=== PATIENT | female | born 1985 | race Caucasian/White ===

== ENCOUNTER 2017-05-08 14:18 | Emergency (ER) | payer MEDICAID ==
[2017-05-08] MEDS ORDERED: CIPROFLOXACIN HCL 0.3% OPH SOLN 2.5 ML OS ONE (15:29)
--- NOTE | 2017-05-08 15:35 | ER Document Report ---
ED General - General Chief Complaint: Drainage from Eye Stated Complaint: COUGH Time Seen by Provider: 05/08/17 15:23 Mode of Arrival: Ambulatory Information source: Patient Notes: 32-year-old female presents with 1 day duration of complaints of pinkeye. Patient notes that she has allergies but has never had thick drainage from her eye, woke up this morning and her eye was matted shut on the left. Notes swelling around the eye itself and noted that now is moving to the right no contact use - HPI Onset: This morning Onset/Duration: Sudden Quality of pain: No pain Severity: Mild Pain Level: Denies Associated symptoms: None Exacerbated by: Denies Relieved by: Denies Similar symptoms previously: No Recently seen / treated by doctor: No Past Medical History - Social History Smoking Status: Never Smoker Cigarette use (# per day): No Chew tobacco use (# tins/day): No Smoking Education Provided: No Family History: Reviewed & Not Pertinent Review of Systems - Review of Systems Notes: REVIEW OF SYSTEMS: CONSTITUTIONAL : Denies fever, chills, or sweats. Denies recent illness. EENT: Admits to discharge from the eyes CARDIOVASCULAR: Denies chest pain. Denies palpitations or racing or irregular heart beat. Denies ankle edema. RESPIRATORY: Denies cough, cold, or chest congestion. Denies shortness of breath, difficulty breathing, or wheezing. GASTROINTESTINAL: Denies abdominal pain or distention. Denies nausea, vomiting , or diarrhea. Denies blood in vomitus, stools, or per rectum. Denies black, tarry stools. Denies constipation. GENITOURINARY: Denies difficulty urinating, painful urination, burning, frequency, blood in urine, or discharge. FEMALE GENITOURINARY: Denies vaginal bleeding, heavy or abnormal periods, irregular periods. Denies vaginal discharge or odor. MUSCULOSKELETAL: Denies back or neck pain or stiffness. Denies joint pain or swelling. SKIN: Denies rash, lesions or sores. HEMATOLOGIC : Denies easy bruising or bleeding. LYMPHATIC: Denies swollen, enlarged glands. NEUROLOGICAL: Denies confusion or altered mental status. Denies passing out or loss of consciousness. Denies dizziness or lightheadedness. Denies headache. Denies weakness or paralysis or loss of use of either side. Denies problems with gait or speech. Denies sensory loss, numbness, or tingling. Denies seizures. PSYCHIATRIC: Denies anxiety or stress. Denies depression, suicidal ideation, or homicidal ideation. ALL OTHER SYSTEMS REVIEWED AND NEGATIVE. PHYSICAL EXAMINATION: GENERAL: Well-appearing, well-nourished and in no acute distress. HEAD: Atraumatic, normocephalic. EYES: Pupils equal round extraocular movements intact, conjunctiva are mildly erythematous ENT: Nares patent NECK: Normal range of motion LUNGS: No respiratory distress Musculoskeletal: Normal range of motion NEUROLOGICAL: Normal speech, normal gait. PSYCH: Normal mood, normal affect. SKIN: Warm, Dry, normal turgor, no rashes or lesions noted. Physical Exam - Vital signs Vitals: Temp Pulse Resp BP Pulse Ox 98.6 F 73 16 132/76 H 98 05/08/17 14:24 05/08/17 14:24 05/08/17 14:24 05/08/17 14:24 05/08/17 14:24 Course - Re-evaluation Re-evalutation: 05/08/17 15:52 Patient did note a cough on her chief complaint however when I talked to her she denies a cough states this not important, notes her eyes or her concern, given that she has had thick discharge from the eye earlier today I will treat her as bacterial conjunctivitis Otherwise patient looks well is in no distress instructions regarding conjunctivitis have been provided to her After performing a Medical Screening Examination, I estimate there is LOW risk for a RETAINED CORNEAL or LID FOREIGN BODY, DEEP SPACE INFECTION (e.g., ORBITAL CELLULITIS OR ABSCESS), ACUTE GLAUCOMA, PENETRATING GLOBE INJURY, RETINAL DETACHMENT, or MENINGITIS thus I consider the discharge disposition reasonable. I have reevaluated this patient multiple times and no significant life threatening changes are noted. Also, there is no evidence or peritonitis, sepsis , or toxicity. The patient and I have discussed the diagnosis and risks, and we agree with discharging home with outpatient follow-up with the understanding that symptoms and presentations can change. We also discussed returning to the Emergency Department immediately if new or worsening symptoms occur. We have discussed the symptoms which are most concerning (e.g., changing or worsening pain, vision changes, neck stiffness or fever) that necessitate immediate return. - Vital Signs Vital signs: Temp Pulse Resp BP Pulse Ox 98.6 F 73 16 132/76 H 98 05/08/17 14:24 05/08/17 14:24 05/08/17 14:24 05/08/17 14:24 05/08/17 14:24 Discharge - Discharge Clinical Impression: Bacterial conjunctivitis of left eye Condition: Stable Disposition: HOME, SELF-CARE Instructions: Conjunctivitis ([facility]), Conjunctivitis, Allergic Forms: Return to Work
[2017-05-08 16:24] VITALS: BP 120/68
== END 2017-05-08 16:20 | disposition home or self-care (01) ==
LOC: ER 14:18
DX: H10.022 Other mucopurulent conjunctivitis, left eye (principal); R05 Cough; R22.0 Localized swelling, mass and lump, head
CPT/HCPCS: 99282; J3490

== ENCOUNTER 2017-09-26 13:33 | Emergency (ER) | payer SELFPAY ==
[2017-09-26 13:43] VITALS: BP 139/78
[2017-09-26] MEDS ORDERED: HYDROCODONE/ACETAMINOPHEN 5-325 MG TABLET PO ONE (14:20)
[2017-09-26] MEDS ORDERED: DOXYCYCLINE HYCLATE 100 MG TABLET PO ONE (14:20)
--- NOTE | 2017-09-26 14:23 | ER Document Report ---
HPI - HPI Patient complains to provider of: Dental infection Onset: Other - 3 days Onset/Duration: Persistent Quality of pain: Achy Pain Level: 4 Context: She complains of dental pain for the past 3 days. Patient states that she did have purulent bloody drainage in her mouth yesterday. Patient reports temperature of 99 at home. Associated Symptoms: Other - Dental pain. denies: Fever Exacerbated by: Denies Relieved by: Denies Similar symptoms previously: Yes Recently seen / treated by doctor: No - ROS ROS below otherwise negative: Yes Systems Reviewed and Negative: Yes All other systems reviewed and negative - CONSTITUTIONAL Constitutional: REPORTS: Fever - 99.0 - EENT Notes: Dental pain - GASTROINTESTINAL Gastrointestinal: DENIES: Nausea - MUSCULOSKELETAL Musculoskeletal: DENIES: Neck Pain - DERM Skin Color: Normal Skin Problems: None Past Medical History - General Information source: Patient - Social History Smoking Status: Current Every Day Smoker Chew tobacco use (# tins/day): No Smoking Education Provided: Yes Frequency of alcohol use: None Drug Abuse: Marijuana Occupation: Foodservice Family History: Reviewed & Not Pertinent Patient has suicidal ideation: No Patient has homicidal ideation: No - Medical History Medical History: Negative Renal/ Medical History: Denies: Hx Peritoneal Dialysis Past Surgical History: Reports: Hx Section, Hx Cholecystectomy, Hx Hysterectomy, Hx Orthopedic Surgery - back Vertical Provider Document - CONSTITUTIONAL Agree With Documented VS: Yes Exam Limitations: No Limitations General Appearance: WD/WN, No Apparent Distress - INFECTION CONTROL TRAVEL OUTSIDE OF THE [place] IN LAST 30 DAYS: No - HEENT HEENT: Atraumatic, Normocephalic Mouth Diagram: 1 - Dental decay, tenderness, mild gingival induration, no sublingual or submental swelling, no trismus - NECK Neck: Normal Inspection, Supple. negative: Lymphadenopathy-Left, Lymphadenopathy-Right - RESPIRATORY Respiratory: Breath Sounds Normal, No Respiratory Distress - CARDIOVASCULAR Cardiovascular: Regular Rate, Regular Rhythm - BACK Back: Normal Inspection - MUSCULOSKELETAL/EXTREMETIES Musculoskeletal/Extremeties: SAM GARCIA - NEURO Level of Consciousness: Awake, Alert, Appropriate Motor/Sensory: No Motor Deficit - DERM Integumentary: Warm, Dry, No Rash Course - Re-evaluation Re-evalutation: 09/26/17 14:21 Patient initially denied taking any pain medications. Review of controlled substance database demonstrates that patient received a prescription for tramadol yesterday for 5 day supply. Patient encouraged to take her prescribed pain medication and to follow-up with a dentist for further evaluation. - Vital Signs Vital signs: Temp Pulse Resp BP Pulse Ox 99.0 F 87 18 139/78 H 100 09/26/17 13:40 09/26/17 13:40 09/26/17 13:40 09/26/17 13:40 09/26/17 13:40 Discharge - Discharge Clinical Impression: Infected dental caries Condition: Stable Disposition: HOME, SELF-CARE Instructions: Dentist, Dental Infection or Abscess ([facility]), Doxycycline ([facility]) Additional Instructions: Return immediately for any new or worsening symptoms Followup with your primary care provider, call tomorrow to make a followup appointment Take your tramadol that you have at home as prescribed Follow-up with a dental care provider Prescriptions: Doxycycline Hyclate 100 mg PO BID #20 capsule Naproxen [Naprosyn 250 Nmg Tablet] 1 tab PO BID #14 tablet Forms: Smoking Cessation Education, Return to Work Referrals: [facility] [Provider Group] - Follow up as needed
== END 2017-09-26 14:40 | disposition home or self-care (01) ==
LOC: ER 13:33
DX: K04.7 Periapical abscess without sinus (principal); F17.200 Nicotine dependence, unspecified, uncomplicated; Z90.49 Acquired absence of other specified parts of digestive tract; Z90.710 Acquired absence of both cervix and uterus
CPT/HCPCS: 99282

== ENCOUNTER 2018-05-06 13:54 | Emergency (ER) | payer SELFPAY ==
[2018-05-06] MEDS ORDERED: ONDANSETRON HCL INJ/PF 4 MG/2 ML SDV IV ONE (15:12)
[2018-05-06] MEDS ORDERED: NORMAL SALINE 1000 ML 2,000 ML IV ONE (15:12)
--- NOTE | 2018-05-06 15:14 | ER Document Report ---
ED Medical Screen (RME) - General Chief Complaint: Vomiting/Diarrhea Stated Complaint: VOMITING,DIARRHEA Time Seen by Provider: 05/06/18 15:08 Mode of Arrival: Ambulatory Information source: Patient Notes: Patient is an otherwise healthy 33-year-old female who presents to the emergency department with chief complaint of nausea, vomiting and diarrhea that began at approximately 2 AM. Patient reports she drank 4 L of arbor mist wine as she was celebrating purchasing her new home. Patient reports she does not normally drink heavily. She usually drinks a glass or 2 of wine occasionally. She denies any abdominal pain, states she just has abdominal cramping at the time that she vomits. Exam: Abdomen soft, mild tenderness, no guarding, no rebound. I have greeted and performed a rapid initial assessment of this patient. A comprehensive ED assessment and evaluation of the patient, analysis of test results and completion of the medical decision making process will be conducted by additional ED providers. Dictation of this chart was performed using voice recognition software; therefore, there may be some unintended grammatical errors. TRAVEL OUTSIDE OF THE [place] IN LAST 30 DAYS: No - Related Data Allergies/Adverse Reactions: acetaminophen [From Vicodin] Allergy (Verified 05/06/18 13:57) aspirin Allergy (Verified 05/06/18 13:57) ciprofloxacin [From Cipro] Allergy (Verified 05/06/18 13:57) clindamycin Allergy (Verified 05/06/18 13:57) clonazepam Allergy (Verified 05/06/18 13:57) codeine Allergy (Verified 05/06/18 13:57) erythromycin base Allergy (Verified 05/06/18 13:57) hydrocodone [From Vicodin] Allergy (Verified 05/06/18 13:57) latex Allergy (Verified 05/06/18 14:00) morphine Allergy (Verified 05/06/18 13:57) Penicillins Allergy (Verified 05/06/18 13:57) prednisone Allergy (Verified 05/06/18 13:57) Past Medical History - Social History Chew tobacco use (# tins/day): No Frequency of alcohol use: Social Drug Abuse: Marijuana Renal/ Medical History: Denies: Hx Peritoneal Dialysis Past Surgical History: Reports: Hx Section, Hx Cholecystectomy, Hx Hysterectomy, Hx Orthopedic Surgery - back Physical Exam - Vital signs Vitals: Temp Pulse Resp BP Pulse Ox 98.4 F 106 H 16 168/85 H 98 05/06/18 14:08 05/06/18 14:08 05/06/18 14:08 05/06/18 14:08 05/06/18 14:08 Course - Vital Signs Vital signs: Temp Pulse Resp BP Pulse Ox 98.4 F 106 H 16 168/85 H 98 05/06/18 14:08 05/06/18 14:08 05/06/18 14:08 05/06/18 14:08 05/06/18 14:08
[2018-05-06 16:37] LABS: ABSOLUTE BASOPHILS # (AUTO) 0.1 10^3/uL (0.0-0.2); ABSOLUTE LYMPHOCYTES (AUTO) 2.5 10^3/uL (0.5-4.7); ABSOLUTE MONOCYTES (AUTO) 0.8 10^3/uL (0.1-1.4); ABSOLUTE NEUT (AUTO) 13.7 10^3/uL (1.7-8.2); BASOPHILS % (AUTO) 0.3 % (0-2); EOSINOPHILS % (AUTO) 0.1 % (0-6); HEMATOCRIT 47.3 % (36.0-47.0); HEMOGLOBIN 16.3 g/dL (12.0-15.5); LYMPHOCYTES % (AUTO) 14.7 % (13-45); MEAN CORPUSCULAR HGB CONC 34.5 g/dL (32.0-36.0); MEAN CORPUSCULAR VOLUME 90 fl (80-97); MONOCYTES % (AUTO) 4.9 % (3-13); PLATELET COUNT 362 10^3/uL (150-450); RED BLOOD COUNT 5.27 10^6/uL (3.72-5.28); RED CELL DISTRIBUTION WIDTH 13.7 % (11.5-14.0); TOTAL CELLS COUNTED % (AUTO) 100 %; WHITE BLOOD COUNT 17.1 10^3/uL (4.0-10.5)
[2018-05-06 16:57] LABS: ALANINE AMINOTRANSFERASE 32 U/L (9-52); ALBUMIN 5.2 g/dL (3.5-5.0); ALKALINE PHOSPHATASE 71 U/L (38-126); ANION GAP 14 (5-19); ASPARTATE AMINO TRANSFERASE 20 U/L (14-36); BILIRUBIN,DIRECT 0.3 mg/dL (0.0-0.4); BILIRUBIN,TOTAL 0.5 mg/dL (0.2-1.3); BLOOD UREA NITROGEN 11 mg/dL (7-20); CALCIUM 10.1 mg/dL (8.4-10.2); CARBON DIOXIDE 25 mmol/L (22-30); CHLORIDE 103 mmol/L (98-107); GLUCOSE 89 mg/dL (75-110); SODIUM 141.9 mmol/L (137-145); TOTAL PROTEIN 8.6 g/dL (6.3-8.2)
[2018-05-06 16:58] LABS: POTASSIUM 4.1 mmol/L (3.6-5.0)
[2018-05-06 17:26] VITALS: BP 135/71
--- NOTE | 2018-05-06 17:29 | ER Document Report ---
ED GI/ - General Chief Complaint: Vomiting/Diarrhea Stated Complaint: VOMITING,DIARRHEA Time Seen by Provider: 05/06/18 15:08 Mode of Arrival: Ambulatory Notes: Patient is an otherwise healthy 33-year-old female who presents to the emergency department with chief complaint of nausea, vomiting and diarrhea that began at approximately 2 AM. Patient reports she drank 4 L of arbor mist wine as she was celebrating purchasing her new home. Patient reports she does not normally drink heavily. She usually drinks a glass or 2 of wine occasionally. She denies any abdominal pain, states she just has abdominal cramping at the time that she vomits. TRAVEL OUTSIDE OF THE [place] IN LAST 30 DAYS: No - Related Data Allergies/Adverse Reactions: acetaminophen [From Vicodin] Allergy (Verified 05/06/18 13:57) aspirin Allergy (Verified 05/06/18 13:57) ciprofloxacin [From Cipro] Allergy (Verified 05/06/18 13:57) clindamycin Allergy (Verified 05/06/18 13:57) clonazepam Allergy (Verified 05/06/18 13:57) codeine Allergy (Verified 05/06/18 13:57) erythromycin base Allergy (Verified 05/06/18 13:57) hydrocodone [From Vicodin] Allergy (Verified 05/06/18 13:57) latex Allergy (Verified 05/06/18 14:00) morphine Allergy (Verified 05/06/18 13:57) Penicillins Allergy (Verified 05/06/18 13:57) prednisone Allergy (Verified 05/06/18 13:57) Past Medical History - General Information source: Patient - Social History Smoking Status: Current Every Day Smoker Chew tobacco use (# tins/day): No Frequency of alcohol use: Social Drug Abuse: Marijuana Family History: Reviewed & Not Pertinent Patient has suicidal ideation: No Patient has homicidal ideation: No - Medical History Medical History: Negative Renal/ Medical History: Denies: Hx Peritoneal Dialysis Past Surgical History: Reports: Hx Section, Hx Cholecystectomy, Hx Hysterectomy, Hx Orthopedic Surgery - back - Immunizations Immunizations up to date: Yes Review of Systems - Review of Systems Constitutional: No symptoms reported EENT: No symptoms reported Cardiovascular: No symptoms reported Respiratory: No symptoms reported Gastrointestinal: Nausea, Vomiting Genitourinary: No symptoms reported Female Genitourinary: No symptoms reported Musculoskeletal: No symptoms reported Skin: No symptoms reported Hematologic/Lymphatic: No symptoms reported Neurological/Psychological: No symptoms reported Physical Exam - Vital signs Vitals: Temp Pulse Resp BP Pulse Ox 98.4 F 106 H 16 168/85 H 98 05/06/18 14:08 05/06/18 14:08 05/06/18 14:08 05/06/18 14:08 05/06/18 14:08 - Notes Notes: PHYSICAL EXAMINATION: GENERAL: Well-appearing, well-nourished and in no acute distress. HEAD: Atraumatic, normocephalic. EYES: Pupils equal round and reactive to light, extraocular movements intact, conjunctiva are normal. ENT: Nares patent, oropharynx clear without exudates. Moist mucous membranes. NECK: Normal range of motion, supple without lymphadenopathy LUNGS: Breath sounds clear to auscultation bilaterally and equal. No wheezes rales or rhonchi. HEART: Regular rate and rhythm without murmurs ABDOMEN: Soft, nontender, nondistended abdomen. No guarding, no rebound. No masses appreciated. Female : deferred Musculoskeletal: Normal range of motion, no pitting or edema. No cyanosis. NEUROLOGICAL: Cranial nerves grossly intact. Normal speech, normal gait. Normal sensory, motor exams PSYCH: Normal mood, normal affect. SKIN: Warm, Dry, normal turgor, no rashes or lesions noted. Course - Re-evaluation Re-evalutation: Patient with leukocytosis of 17,000, likely secondary to persistent vomiting all day. Patient was treated in the emergency department with antiemetics and IV fluids. Patient has not had any abdominal pain. Her abdomen is soft, nontender nondistended. She states that her symptoms have completely resolved after taking Zofran in the emergency department. Patient will be discharged home. - Vital Signs Vital signs: Temp Pulse Resp BP Pulse Ox 99.2 F 72 18 135/71 H 100 05/06/18 17:25 05/06/18 17:25 05/06/18 17:25 05/06/18 17:25 05/06/18 17:25 - Laboratory Result Diagrams: 05/06/18 16:08 05/06/18 16:08 Laboratory results interpreted by me: 05/06/18 05/06/18 16:08 16:08 WBC 17.1 H Hgb 16.3 H Hct 47.3 H Seg Neutrophils % 80.0 H Absolute Neutrophils 13.7 H Total Protein 8.6 H Albumin 5.2 H Discharge - Discharge Clinical Impression: Vomiting Qualifiers: Vomiting type: unspecified Vomiting Intractability: unspecified Nausea presence: unspecified Qualified Code(s): R11.10 - Vomiting, unspecified Condition: Stable Disposition: HOME, SELF-CARE Additional Instructions: Your workup today was unremarkable other than a mildly elevated white blood count which is likely secondary to your vomiting. Please take the Zofran as needed for nausea. Follow-up with your primary care provider in the next 3-5 days, return to the emergency department if you develop or worsening abdominal pain, develop a fever or any other symptom that is concerning to you. Prescriptions: Ondansetron [Zofran Odt 4 mg Tablet] 1 - 2 tab PO Q4H PRN #15 tab.rapdis PRN Reason: For Nausea/Vomiting Forms: Return to Work
== END 2018-05-06 17:33 | disposition home or self-care (01) ==
LOC: ER 13:54
DX: R11.10 Vomiting, unspecified (principal); R19.7 Diarrhea, unspecified; F17.200 Nicotine dependence, unspecified, uncomplicated; Z88.6 Allergy status to analgesic agent; Z88.3 Allergy status to other anti-infective agents; Z91.040 Latex allergy status; Z90.49 Acquired absence of other specified parts of digestive tract; Z90.710 Acquired absence of both cervix and uterus
CPT/HCPCS: 99284; 96374; 36415; 85025; 80053; J2405; J7030

== ENCOUNTER 2019-03-09 10:15 | Emergency (ER) | payer SELFPAY ==
[2019-03-09 10:26] VITALS: BP 138/87
--- NOTE | 2019-03-09 11:13 | ER Document Report ---
HPI - HPI Patient complains to provider of: Right hand pain Time Seen by Provider: 03/09/19 11:07 Onset: This morning Onset/Duration: Sudden Context: 33-year-old female presents emergency department with right hand pain. Reports she was carrying some dog food fell and hit her hand on the counter. She is taken Tylenol prior to arrival. She has had ice on the hand. Reports still having pain. No other complaints such as fever vomiting diarrhea. Associated Symptoms: None Exacerbated by: Movement Relieved by: Denies Similar symptoms previously: No Recently seen / treated by doctor: No - REPRODUCTIVE Reproductive: DENIES: : Past Medical History - General Information source: Patient - Social History Smoking Status: Unknown if Ever Smoked Frequency of alcohol use: None Drug Abuse: None Lives with: Family Family History: Reviewed & Not Pertinent Patient has suicidal ideation: No Patient has homicidal ideation: No Endocrine Medical History: Reports: Hx Diabetes Mellitus Type 2 - No longer taking medication Renal/ Medical History: Denies: Hx Peritoneal Dialysis Musculoskeletal Medical History: Reports Hx Fibromyalgia Past Surgical History: Reports: Hx Section, Hx Cholecystectomy, Hx Hysterectomy, Hx Orthopedic Surgery - back - Immunizations Immunizations up to date: Yes Vertical Provider Document - CONSTITUTIONAL Agree With Documented VS: Yes Exam Limitations: No Limitations General Appearance: WD/WN, No Apparent Distress - INFECTION CONTROL TRAVEL OUTSIDE OF THE [place] IN LAST 30 DAYS: No - HEENT HEENT: Atraumatic, Normocephalic - NECK Neck: Supple - RESPIRATORY Respiratory: No Respiratory Distress - CARDIOVASCULAR Cardiovascular: Regular Rate - MUSCULOSKELETAL/EXTREMETIES Musculoskeletal/Extremeties: MAEW, FROM, Tender - Right lateral hand fifth metacarpal area tender to palpate ecchymosis noted cap refill less than 3 seconds good radial pulse complains of burning pain - NEURO Level of Consciousness: Awake, Alert, Appropriate Motor/Sensory: No Motor Deficit - DERM Integumentary: Warm, Dry Adult Front & Back Diagram: 1 - Patient reports pain, light ecchymosis Course - Re-evaluation Re-evalutation: 03/09/19 11:52 Patient presents emergency department with right hand pain after she fell and hit her hand on the counter. Hand x-rays negative for fracture. Patient was placed in a Endy wrap instructed on ice elevate Tylenol for pain follow-up with primary care for referral to orthopedics for continued pain. She verbalized understanding to all instructions Hand X-Ray 03/09/19 11:10 IMPRESSION: NEGATIVE STUDY OF THE RIGHT HAND. NO RADIOGRAPHIC EVIDENCE OF ACUTE INJURY. - Vital Signs Vital signs: Temp Pulse Resp BP Pulse Ox 98.3 F 94 20 138/87 H 98 03/09/19 10:26 03/09/19 10:26 03/09/19 10:26 03/09/19 10:03/09/19 10:26 - Diagnostic Test Radiology reviewed: Image reviewed, Reports reviewed Procedures - Immobilization Right Hand Pre-Proc Neuro Vasc Exam: Normal Immobilizer type: Endy wrap Performed by: FREDDIE gamboa Post-Proc Neuro Vasc Exam: Unchanged from pre-exam Alignment checked and good: Yes Discharge - Discharge Clinical Impression: Right hand pain Condition: Stable Disposition: HOME, SELF-CARE Instructions: Endy Wrap ([facility]), Contusion ([facility]), Ibuprofen (General) ([facility]), Ice & Elevation ([facility]) Additional Instructions: *You have been evaluated for right hand pain contusion *Your hand x-ray was negative for fracture *Maintain the Endy wrap for comfort *Rest/Ice/Elevate your hand *Follow up with your primary care provider within 1 week for recheck *Take Tylenol as indicated for pain *Return to ED for worsening condition, changes, needs Monitor your blood pressure. Your blood pressure was elevated today. This may be because you were anxious, in pain or because you need medication. It is important to follow up with your primary care provider for full evaluation. Forms: Elevated Blood Pressure
--- NOTE | 2019-03-09 11:40 | RADIOLOGY REPORT (SQ) ---
EXAM DESCRIPTION: HAND RIGHT 3 VIEWS COMPLETED DATE/TIME: 03/09/2019 11:30 am REASON FOR STUDY: PAIN FELL THIS AM COMPARISON: None. EXAM PARAMETERS: NUMBER OF VIEWS: Three views. TECHNIQUE: AP, lateral and oblique radiographic images acquired of the right hand. LIMITATIONS: None. FINDINGS: MINERALIZATION: Normal. BONES: No acute fracture or dislocation. No worrisome bone lesions. JOINTS: No effusions. SOFT TISSUES: No soft tissue swelling. No foreign body. OTHER: No other significant finding. IMPRESSION: NEGATIVE STUDY OF THE RIGHT HAND. NO RADIOGRAPHIC EVIDENCE OF ACUTE INJURY. TECHNICAL DOCUMENTATION: JOB ID: [id number] [employer]- All Rights Reserved Reading location - IP/workstation name: [email or web address]
== END 2019-03-09 11:56 | disposition home or self-care (01) ==
LOC: ER 10:15
DX: M79.641 Pain in right hand (principal); Z90.49 Acquired absence of other specified parts of digestive tract; Z90.710 Acquired absence of both cervix and uterus
CPT/HCPCS: 99283